=== PATIENT | male | born 1955 | race Caucasian/White ===

== ENCOUNTER 2018-02-22 09:56 | Inpatient (IN) | payer BC ==
[~2018-02-22] VITALS: Ht 180.3 cm; Wt 94.1 kg
--- NOTE | ~2018-02-22 | OP ---
PATIENT NAME: ERIN NARAYANAN MEDICAL RECORD: [id number] :55 LOCATION:[id number] ADMISSION DATE:02/23/18 SURGEON: LITA LEGER MD DATE OF OPERATION: 02/23/2018 PREOPERATIVE DIAGNOSIS: Large back abscess. POSTOPERATIVE DIAGNOSIS: Large back abscess. PROCEDURE: Excisional debridement of large back abscess. The diameter of the zone of erythema was 14.5 cm today. The tissues debrided were skin, subcutaneous tissue as well as a portion of the abscess cavity. The dimensions that were sharply debrided measured 4.5 x 4.3 cm. I then marsupialized and packed the wound. SURGEON: Lita Leger MD [employer] ATTENDANT: None. BLOOD LOSS: 200 cc. ANESTHESIA: General. COMPLICATIONS: None. The risks, possible complications and alternatives to the procedure were explained to the patient. I had to explain this to him several times. He wanted to alter the way I was going to perform the operation by having me perform some type of flap procedure so the wound closed. I told him that this would be unwise and we needed to allow the wound to "heal from the inside out." OPERATIVE COURSE: The patient was conveyed to the operating room electively on 02/23/2018. General anesthesia was induced by the anesthesia staff. The patient was placed in the lateral decubitus position with the left side down. The back was sterilely prepped and draped. I performed a relatively circular incision around the area that had been draining. I dissected down to the abscess cavity. I performed some blunt dissection in the abscess cavity, which was huge. Additional tissue was going to need to be debrided. This was sharply debrided out laterally. The final dimensions of the debridement are listed above. Blunt dissection was performed and then curettage of the abscess cavity. Also, some necrotic material including necrotic fascia and necrotic adipose tissue as well as granulation tissue were debrided with a curette as well as with a rongeur. Hemostasis was achieved with electrocautery. Cultures were obtained. I then irrigated with hydrogen peroxide. I marsupialized the wound with a running locking 3-0 Vicryl Rapide suture. I then packed the wound with rolls of Kerlix gauze, which had been soaked in quarter strength Dakin's and some knots have been tied in the gauze. A sterile dressing was then applied. The patient was then extubated and conveyed to the post-anesthesia care unit where he was in stable condition. OPERATIVE REPORT [id number] LADYERIN Reyna TRANSINT:[id number] Voice Confirmation ID: [id number] DOCUMENT ID: [id number] LITA LEGER MD at 1023 CC: TYESHA LLAMAS MD and Oswald BECERRA [id number] DICTATION DATE: 02/23/18 1120 CLINICAL INFORMATICIST: 02/23/18 1212 ADM IN [place] [id number] [place] [address]
[2018-02-22 11:14] LABS: BASOPHILS 0 % (0-2); EOSINOPHILS 1.8 % (0-7); HEMOGLOBIN 14.2 g/dL (13.5-17.5); IMMATURE GRANULOCYTES 0.5 % (0-5); LYMPHOCYTES 20.3 % (15-50); MCH 29.1 pg (26.0-34.0); MCHC 33.8 g/dL (31.0-37.0); MCV 86.1 fL (80.0-100.0); MEAN PLATELET VOLUME 9.3 fL (7.4-10.4); MONOCYTES 6.6 % (2-11); NEUTROPHILS 70.8 % (40-80); PLATELET COUNT 316 10x3/uL (130-400); RBC 4.88 10x6/uL (4.20-6.10); RDW 12.7 % (11.5-14.5); WBC 7.9 10x3/uL (4.8-10.8)
[2018-02-22 11:30] LABS: INR 1.24 (0.85-1.17); PROTIME 15.1 SECONDS (11.6-15.0)
[2018-02-22 11:38] LABS: ALBUMIN 2.6 g/dL (3.4-5.0); ALKALINE PHOSPHATASE 97 U/L (46-116); ALT (SGPT) 99 U/L (10-68); BILIRUBIN - TOTAL 0.29 mg/dL (0.2-1.3); C-REACTIVE PROTEIN 9.6 mg/dL (0.0-0.9); CALC OSMOLALITY 284 mosm/kg (275-300); CALCIUM 8.3 mg/dL (8.5-10.1); CARBON DIOXIDE 32.8 mmol/L (21.0-32.0); CHLORIDE - SERUM 97 mmol/L (98-107); CREATININE - SERUM 0.9 mg/dL (0.6-1.3); SODIUM 134 mmol/L (136-145); UREA NITROGEN 6 mg/dL (7-18); eGFR NON AFRICAN AMERICAN > 90 mL/min (90-120)
[2018-02-22 11:43] LABS: GLUCOSE 437 mg/dL (74-106)
[2018-02-22 12:15] LABS: ERYTHROCYTE SEDIMENTATION RATE 48 mm/hr (0-20)
[2018-02-22 15:03] VITALS: BP 143/75; BMI 28.9
[2018-02-22] MEDS ORDERED: CLEOCIN HCL300 MG PO (19:59)
[2018-02-22] MEDS ORDERED: HYDROCODON-ACE1 EAC7 PO (20:00)
[2018-02-23] VITALS (7 sets, daily range): BP systolic 110–136; BP diastolic 56–67; Ht 180.3 cm; Wt 94.1 kg
[2018-02-23 06:38] LABS: BASOPHILS 0.1 % (0-2); EOSINOPHILS 2.5 % (0-7); HEMATOCRIT 37.6 % (42.0-54.0); HEMOGLOBIN 12.4 g/dL (13.5-17.5); IMMATURE GRANULOCYTES 0.3 % (0-5); LYMPHOCYTES 29.6 % (15-50); MCH 28.4 pg (26.0-34.0); MEAN PLATELET VOLUME 9.7 fL (7.4-10.4); MONOCYTES 9.3 % (2-11); NEUTROPHILS 58.2 % (40-80); PLATELET COUNT 291 10x3/uL (130-400); RBC 4.37 10x6/uL (4.20-6.10); RDW 12.9 % (11.5-14.5); WBC 6.9 10x3/uL (4.8-10.8)
[2018-02-23 06:56] LABS: CALCIUM 7.7 mg/dL (8.5-10.1); CARBON DIOXIDE 29.9 mmol/L (21.0-32.0); CHLORIDE - SERUM 101 mmol/L (98-107); CREATININE - SERUM 0.7 mg/dL (0.6-1.3); SODIUM 137 mmol/L (136-145); UREA NITROGEN 6 mg/dL (7-18); eGFR NON AFRICAN AMERICAN > 90 mL/min (90-120)
[2018-02-23 06:57] LABS: CALC OSMOLALITY 285 mosm/kg (275-300); GLUCOSE 349 mg/dL (74-106); POTASSIUM - SERUM 4.7 mmol/L (3.5-5.1)
[2018-02-24 07:14] LABS: BASOPHILS 0.1 % (0-2); EOSINOPHILS 0 % (0-7); HEMATOCRIT 35.2 % (42.0-54.0); HEMOGLOBIN 11.4 g/dL (13.5-17.5); IMMATURE GRANULOCYTES 0.5 % (0-5); LYMPHOCYTES 22.2 % (15-50); MCHC 32.4 g/dL (31.0-37.0); MCV 86.5 fL (80.0-100.0); MONOCYTES 8.9 % (2-11); NEUTROPHILS 68.3 % (40-80); PLATELET COUNT 307 10x3/uL (130-400); RBC 4.07 10x6/uL (4.20-6.10); RDW 12.9 % (11.5-14.5)
[2018-02-24 07:31] LABS: WBC 8.7 10x3/uL (4.8-10.8)
[2018-02-24 07:38] LABS: ALKALINE PHOSPHATASE 68 U/L (46-116); BILIRUBIN - TOTAL 0.35 mg/dL (0.2-1.3); CALCIUM 7.7 mg/dL (8.5-10.1); CARBON DIOXIDE 33.7 mmol/L (21.0-32.0); CHLORIDE - SERUM 102 mmol/L (98-107); CREATININE - SERUM 0.7 mg/dL (0.6-1.3); POTASSIUM - SERUM 4.5 mmol/L (3.5-5.1); PROTEIN - SERUM 5.5 g/dL (6.4-8.2); SODIUM 138 mmol/L (136-145); UREA NITROGEN 6 mg/dL (7-18); eGFR NON AFRICAN AMERICAN > 90 mL/min (90-120)
[2018-02-24 07:39] LABS: ALT (SGPT) 71 U/L (10-68); CALC OSMOLALITY 281 mosm/kg (275-300); GLUCOSE 249 mg/dL (74-106)
[2018-02-24 08:16] VITALS: BP 196/84
[2018-02-24 11:56] VITALS: BP 111/70
[2018-02-24 16:28] VITALS: BP 123/76
[2018-02-24 20:23] VITALS: BP 142/65
[2018-02-25 04:00] VITALS: BP 121/64
[2018-02-25 07:56] LABS: BASOPHILS 0.3 % (0-2); EOSINOPHILS 3.1 % (0-7); HEMATOCRIT 33.6 % (42.0-54.0); HEMOGLOBIN 11.3 g/dL (13.5-17.5); IMMATURE GRANULOCYTES 0.6 % (0-5); MCHC 33.6 g/dL (31.0-37.0); MCV 86.4 fL (80.0-100.0); MONOCYTES 7.4 % (2-11); NEUTROPHILS 57.6 % (40-80); PLATELET COUNT 277 10x3/uL (130-400); RBC 3.89 10x6/uL (4.20-6.10); RDW 13.1 % (11.5-14.5); WBC 7.9 10x3/uL (4.8-10.8)
[2018-02-25 08:21] LABS: ALKALINE PHOSPHATASE 64 U/L (46-116); BILIRUBIN - TOTAL 0.21 mg/dL (0.2-1.3); CALC OSMOLALITY 281 mosm/kg (275-300); CALCIUM 8.1 mg/dL (8.5-10.1); CARBON DIOXIDE 30.4 mmol/L (21.0-32.0); CHLORIDE - SERUM 102 mmol/L (98-107); CREATININE - SERUM 0.6 mg/dL (0.6-1.3); GLUCOSE 242 mg/dL (74-106); POTASSIUM - SERUM 4.5 mmol/L (3.5-5.1); SODIUM 138 mmol/L (136-145); UREA NITROGEN 6 mg/dL (7-18); eGFR NON AFRICAN AMERICAN > 90 mL/min (90-120)
[2018-02-25 08:24] LABS: ALT (SGPT) 45 U/L (10-68)
[2018-02-25 08:43] VITALS: BP 124/75
[2018-02-25] MEDS ORDERED: DOXYCYCLINE HY100 M2 PO (09:18)
[2018-02-25] MEDS ORDERED: GLUCOPHAGE500 MG PO (09:57)
[2018-02-25 12:08] VITALS: BP 133/83
== END 2018-02-25 13:20 | disposition home or self-care (01) | DRG 572 ==
LOC: D.ER 09:56 → D.EDHOLD 11:40 → D.MS 11:40 → OBSVTIME 11:41 → D.MS 12:16
PROVIDERS: Family Medicine; Family Medicine Adult Medicine; Surgery
PROC: 0JB70ZZ Excision of Back Subcutaneous Tissue and Fascia, Open Approach (ICD-10-PCS; principal; 2018-02-23 11:30)
DX: L02.212 Cutaneous abscess of back [any part, except buttock and flank] (principal); B95.62 Methicillin resistant Staphylococcus aureus infection as the cause of diseases classified elsewhere; L03.312 Cellulitis of back [any part except buttock and flank]; E03.9 Hypothyroidism, unspecified; E11.65 Type 2 diabetes mellitus with hyperglycemia; E66.9 Obesity, unspecified; Z68.28 Body mass index [BMI] 28.0-28.9, adult